=== PATIENT | male | born 2000 | race Two or more races ===

== ENCOUNTER 2020-05-21 15:28 | Emergency (ER) | payer OTHER ==
[~2020-05-21] VITALS: Ht 188 cm; Wt 95.3 kg
[2020-05-21 15:36] VITALS: BP 121/75
--- NOTE | 2020-05-21 15:50 | NUR ---
PT IS MEDICALLY CLEARED FOR BOOKING AND RELEASED UNDER THE CARE OF [facility]. PT IS AMBULATORY ON STEADY GAIT
--- NOTE | 2020-05-21 16:00 | NUR ---
Patient discharged in custody in stable condition. Written and verbal after care instructions given. Patient verbalizes understanding of instruction.
== END 2020-05-21 16:01 ==
LOC: ER 15:28
DX: Z02.89 Encounter for other administrative examinations (principal)